=== PATIENT | female | born 1985 | race American Indian/Alaskan Native ===

== ENCOUNTER 2016-09-21 08:41 | Emergency (ER) | payer MEDICAID ==
[2016-09-21 08:59] VITALS: BP 119/77
[2016-09-21 09:27] LABS: Hemoglobin 10.8 gm/dl (10.1-14.3); Mean Corpuscular HGB Conc 32 % (30-34); Mean Corpuscular Volume 76 fl (79-97); Platelet Count 328 K/mm3 (140-440); Red Blood Count 4.48 M/mm3 (3.65-5.03); Red Cell Distribution Width 16.6 % (13.2-15.2)
[2016-09-21 09:31] LABS: Mean Corpuscular Hemoglobin 24 pg (28-32)
[2016-09-21 10:17] LABS: Bacteria,Urine 4+ /HPF (Negative); Bilirubin,Urine NEG (Negative); Blood,Urine MOD (Negative); Ketones,Urine NEG (Negative); Leukocyte Esterase,Urine LG (Negative); Nitrite,Urine POS (Negative); Protein,Urine <15 mg/dL mg/dL (Negative); Urobilinogen,Urine < 2.0 mg/dL (<2.0)
[2016-09-21 10:21] LABS: Basophils % (Manual) 0 % (0.0-1.8); Blastocytes % (Manual) 0 %
[2016-09-21 10:22] LABS: Anisocytosis 1+; Diff Status Complete; Elliptocytes Few; Helmet Cells Rare; Microcytosis 1+; Ovalocytes 1+; Polychromasia Rare
[2016-09-21 11:12] LABS: Anion Gap 22 mmol/L; BUN/Creatinine Ratio 6.66; Blood Urea Nitrogen 4 mg/dL (7-17); Calcium 9.1 mg/dL (8.4-10.2); Carbon Dioxide 17 mmol/L (22-30); Chloride 105.1 mmol/L (98-107); Glucose 99 mg/dL (65-100); Potassium 4.1 mmol/L (3.6-5.0); Sodium 140 mmol/L (137-145)
--- NOTE | 2016-09-23 01:45 | ED Elopement Review ---
ED Pt Elopement review - Results review Lab results: Laboratory Tests 09/21/16 09/21/16 09/21/16 09:09 09:09 09:09 WBC 23.0 H RBC 4.48 Hgb 10.8 Hct 34.0 MCV 76 L MCH 24 L MCHC 32 RDW 16.6 H Plt Count 328 Add Manual Diff Complete Total Counted 100 Seg Neuts % (Manual) 81.0 H Band Neutrophils % 2.0 Lymphocytes % (Manual) 12.0 L Reactive Lymphs % (Man) 0 Monocytes % (Manual) 4.0 Eosinophils % (Manual) 1.0 Basophils % (Manual) 0 Metamyelocytes % 0 Myelocytes % 0 Promyelocytes % 0 Blast Cells % 0 Nucleated RBC % Not Reportable Seg Neutrophils # Man 18.6 H Band Neutrophils # 0.5 Lymphocytes # (Manual) 2.8 Abs React Lymphs (Man) 0.0 Monocytes # (Manual) 0.9 H Eosinophils # (Manual) 0.2 Basophils # (Manual) 0.0 Metamyelocytes # 0.0 Myelocytes # 0.0 Promyelocytes # 0.0 Blast Cells # 0.0 WBC Morphology Not Reportable Hypersegmented Neuts Not Reportable Hyposegmented Neuts Not Reportable Hypogranular Neuts Not Reportable Smudge Cells Not Reportable Toxic Granulation Not Reportable Toxic Vacuolation Not Reportable Dohle Bodies Not Reportable Pelger-Huet Anomaly Not Reportable Ruben Rods Not Reportable Platelet Estimate Appears normal Clumped Platelets Not Reportable Plt Clumps, EDTA Not Reportable Large Platelets Not Reportable Giant Platelets Not Reportable Platelet Satelliting Not Reportable Plt Morphology Comment Not Reportable RBC Morphology Not Reportable Dimorphic RBCs Not Reportable Polychromasia Rare Hypochromasia Not Reportable Poikilocytosis Not Reportable Anisocytosis 1+ Microcytosis 1+ Macrocytosis Not Reportable Spherocytes Not Reportable Pappenheimer Bodies Not Reportable Sickle Cells Not Reportable Target Cells Not Reportable Tear Drop Cells Not Reportable Ovalocytes 1+ Helmet Cells Rare [place]ower-[place] Bodies Not Reportable [place] Rings Not Reportable [place] Cells Not Reportable Bite Cells Not Reportable Crenated Cell Not Reportable Elliptocytes Few Acanthocytes (Spur) Not Reportable Rouleaux Not Reportable Hemoglobin C Crystals Not Reportable Schistocytes Not Reportable Malaria parasites Not Reportable Avtar Bodies Not Reportable Hem Pathologist Commnt No Sodium 140 Potassium 4.1 Chloride 105.1 Carbon Dioxide 17 L Anion Gap 22 BUN 4 L Creatinine 0.6 L Estimated GFR > 60 BUN/Creatinine Ratio 6.66 Glucose 99 Calcium 9.1 HCG, Qual Positive Urine Color Urine Turbidity Urine pH Ur Specific [place] Urine Protein Urine Glucose (UA) Urine Ketones Urine Blood Urine Nitrite Urine Bilirubin Urine Urobilinogen Ur Leukocyte Esterase Urine WBC (Auto) Urine RBC (Auto) U Epithel Cells (Auto) Urine Bacteria (Auto) Blood Type Antibody Screen 09/21/16 09/21/16 09:09 Unknown WBC RBC Hgb Hct MCV MCH MCHC RDW Plt Count Add Manual Diff Total Counted Seg Neuts % (Manual) Band Neutrophils % Lymphocytes % (Manual) Reactive Lymphs % (Man) Monocytes % (Manual) Eosinophils % (Manual) Basophils % (Manual) Metamyelocytes % Myelocytes % Promyelocytes % Blast Cells % Nucleated RBC % Seg Neutrophils # Man Band Neutrophils # Lymphocytes # (Manual) Abs React Lymphs (Man) Monocytes # (Manual) Eosinophils # (Manual) Basophils # (Manual) Metamyelocytes # Myelocytes # Promyelocytes # Blast Cells # WBC Morphology Hypersegmented Neuts Hyposegmented Neuts Hypogranular Neuts Smudge Cells Toxic Granulation Toxic Vacuolation Dohle Bodies Pelger-Huet Anomaly Ruben Rods Platelet Estimate Clumped Platelets Plt Clumps, EDTA Large Platelets Giant Platelets Platelet Satelliting Plt Morphology Comment RBC Morphology Dimorphic RBCs Polychromasia Hypochromasia Poikilocytosis Anisocytosis Microcytosis Macrocytosis Spherocytes Pappenheimer Bodies Sickle Cells Target Cells Tear Drop Cells Ovalocytes Helmet Cells [place]ightower-[place] Bodies [place] Rings [place] Cells Bite Cells Crenated Cell Elliptocytes Acanthocytes (Spur) Rouleaux Hemoglobin C Crystals Schistocytes Malaria parasites Avtar Bodies Hem Pathologist Commnt Sodium Potassium Chloride Carbon Dioxide Anion Gap BUN Creatinine Estimated GFR BUN/Creatinine Ratio Glucose Calcium HCG, Qual Urine Color Yellow Urine Turbidity Slightly-cloudy Urine pH 6.0 Ur Specific [place] 1.016 Urine Protein <15 mg/dl Urine Glucose (UA) Neg Urine Ketones Neg Urine Blood Mod Urine Nitrite Pos Urine Bilirubin Neg Urine Urobilinogen < 2.0 Ur Leukocyte Esterase Lg Urine WBC (Auto) 13.0 H Urine RBC (Auto) 3.0 U Epithel Cells (Auto) 3.0 Urine Bacteria (Auto) 4+ Blood Type O POSITIVE Antibody Screen Negative - Call Back decision Pt Call Back Decision: Call pt to return to ED [facility]
== END 2016-09-21 20:10 | disposition left against medical advice (07) ==
LOC: ED 08:41
DX: O20.9 Hemorrhage in early pregnancy, unspecified (principal); R10.30 Lower abdominal pain, unspecified; Z88.1 Allergy status to other antibiotic agents; Z87.891 Personal history of nicotine dependence; Z3A.14 14 weeks gestation of pregnancy; Z53.21 Procedure and treatment not carried out due to patient leaving prior to being seen by health care provider
CPT/HCPCS: 36415; 80048; 81001; 84703; 85007; 85025; 86850; 86900; 86901

== ENCOUNTER 2019-04-20 11:08 | Emergency (ER) | payer MEDICAID ==
[2019-04-20 11:22] VITALS: BP 116/85
--- NOTE | 2019-04-20 11:32 | Emergency Department Report ---
Chief Complaint: Shoulder Injury Stated Complaint: KNOT ON LT POST ARM Time Seen by Provider: 04/20/19 11:27 - HPI History of Present Illness: 33 y/o female comes in for left posterior proximal cyst like structure that has been there for 1 year. Causes some discomfort. No fever no redness non tender to touch - Exam Vital Signs: Vital Signs 04/20/19 11:21 Temperature 98.5 F Pulse Rate 66 Respiratory 16 Rate Blood Pressure 116/85 [Right] O2 Sat by Pulse 100 Oximetry Physical Exam: No fever no redness non tender to touch. Cyst MSE screening note: Focused history and physical exam performed. Due to findings the following was ordered: referral to surgery ED Disposition for MSE Disposition: MED SCREENING EXAM-LEFT Is pt being admited?: No Does the pt Need Aspirin: No Condition: Stable Referrals: KATIUSKA APONTE MD [Staff Physician] - 3-5 Days MARKY HOOPER DO [Staff Physician] - 3-5 Days PA GARCÍA MD [Staff Physician] - 3-5 Days
== END 2019-04-20 12:00 | disposition left against medical advice (07) ==
LOC: ED 11:08
DX: M79.602 Pain in left arm (principal); Z53.21 Procedure and treatment not carried out due to patient leaving prior to being seen by health care provider

== ENCOUNTER 2019-05-03 11:23 | Day surgery (SDC) | payer MEDICAID ==
--- NOTE | 2019-05-03 07:39 | Short Stay Summary ---
Short Stay Documentation Date of service: 05/03/19 - History H&P: obtained from office - Allergies and Medications Current Medications: Allergies amoxicillin Allergy (Verified 04/29/19 10:29) Facial Swelling Home Medications Medication Instructions Recorded Confirmed Last Taken Type No Known Home Medications [No 04/29/19 04/29/19 Unknown History Reported Home Medications] - Physical exam General appearance: no acute distress Integumentary: no rash HEENT: Atraumatic Lungs: Normal air movement Neurological: Normal speech - Brief post op/procedure progress note Date of procedure: 05/03/19 (dictation:[id number]) Pre-op diagnosis: left shoulder skin mass Post-op diagnosis: same Procedure: excision of left shoulder skin mass IVF 1L EBL min Anesthesia: GETA Findings: [id number] lipomatous mass Surgeon: KATIUSKA APONTE Estimated blood loss: minimal Pathology: list (lipomatous mass) Specimen disposition: to lab Condition: stable - Hospital course Hospital course: uneventful - Disposition Condition at discharge: Stable Disposition: DC- TO HOME OR SELFCARE Short Stay Discharge Plan Diet: regular Wound: per your surgeon's advice Special Instructions: no heavy lifting Additional Instructions: Post Operative Instructions May shower tomorrow. Pat dry the wound or wounds. May remove wrap tomorrow. Re- wrap after shower if it helps with discomfort. After surgery, start with a light diet. Consider having a liquid diet first. If you do well, you can advance to a regular diet as you feel comfortable. Apply an ice pack to the wound or wounds for 10-20 minutes at a time. Do this at least 4-5 times a day. You can do it more if he would like. Alternate the use of ibuprofen and Tylenol for the first 2 days. I want you to take these on a scheduled basis. Take 600 mg of ibuprofen every 6 hours. Take 500 mg of Tylenol every 6 hours. You should alternate these 2 medicines. In other words, beginning with the ibuprofen. After 3 hours, take the Tylenol. Keep alternating the 2 drugs every 3 hours. Do this on a scheduled basis for the first 2 days. After that, you can take them as needed. It is very important that you use the prescription pain medicine only for very severe pain. Do not take the prescription medicine before you try using the ibuprofen and Tylenol. We will call you in a couple of days to see how youre doing. If you have any questions or concerns, always feel free to call the clinic at any time. Follow up with: PRIMARY CAREMD [Primary Care Provider] - 7 Days KATIUSKA APONTE MD [Staff Physician] - 7 Days Forms: [facility] Work/School Release Form Prescriptions: HYDROcodone/APAP 5-325 [[place] 5/325] 1 each PO Q6HR PRN #10 tablet PRN Reason: Pain , Severe (7-10)
[~2019-05-03 11:23] MED LIST: ANCEF/STERILE WATER 2 GM/20 ML 2 GM/20 ML SYRINGE IV NR; GABAPENTIN PO SCH; NACL 0.9% 1000 ML 1,000 ML IV SCH; TYLENOL PO NR
--- NOTE | 2019-05-03 11:47 | Anesthesia Day of Surgery ---
Anesthesia Day of Surgery - Day of Surgery Patient Examined: Yes Patient H&P Reviewed: Yes Patient is NPO: Yes
[2019-05-03] MEDS ORDERED: DILAUDID IV PRN (11:48)
--- NOTE | 2019-05-03 11:48 | Anesthesia Consultation ---
Anesthesia Consult and Med Hx Date of service: 05/03/19 - Airway Anesthetic Teeth Evaluation: Good ROM Head & Neck: Adequate Mental/Hyoid Distance: Adequate Mallampati Class: Class III Intubation Access Assessment: Possibly Difficult - Pulmonary Exam CTA: Yes - Cardiac Exam Cardiac Exam: RRR - Pre-Operative Health Status ASA Pre-Surgery Classification: ASA1 Proposed Anesthetic Plan: General - Pulmonary Hx Smoking: Yes (minimal smoking hx; quit 2013) Hx Respiratory Symptoms: No - Cardiovascular System Hx Hypertension: No - Central Nervous System CVA: No - Gastrointestinal Hx Gastroesophageal Reflux Disease: No - Endocrine Hx Renal Disease: No Hx Liver Disease: No Hx Insulin Dependent Diabetes: No Hx Non-Insulin Dependent Diabetes: No Hx Thyroid Disease: No - Other Systems Hx Obesity: Yes (BMI 37)
[2019-05-03] MEDS ORDERED: VERSED IV NR (12:00)
[2019-05-03] MEDS ORDERED: LACTATED RINGERS 1,000 ML IV SCH (12:00)
[2019-05-03] MEDS ORDERED: VANCOMYCIN/NS 1 GM/250 ML 1 GM/250 ML BAG IV NR (12:00)
[2019-05-03] MEDS ORDERED: DILAUDID ONE (12:24)
[2019-05-03] MEDS ORDERED: DIPRIVAN 10 MG/ML IV ONE (12:24)
[2019-05-03] MEDS ORDERED: XYLOCAINE MPF 2% ONE (12:24)
[2019-05-03] MEDS ORDERED: XYLOCAINE 1% 20 mL ONE (12:30)
[2019-05-03] MEDS ORDERED: MARCAINE-EPI 0.5%-1:200,000 INFILTRATI ONE (12:30)
[2019-05-03] MEDS ORDERED: MARCAINE-EPI/PF 0.5%-1:200,000 INFILTRATI ONE (13:05)
[2019-05-03] MEDS ORDERED: XYLOCAINE 1% 20 mL INFILTRATI ONE (13:05)
[2019-05-03] MEDS ORDERED: NACL 0.9% 1000 ML 1,000 ML ONE (14:14)
[2019-05-03] MEDS ORDERED: NORCO 5/325 PO PRN (14:25)
--- NOTE | 2019-05-03 14:35 | Operative Report ---
PREOPERATIVE DIAGNOSIS: Left shoulder skin mass. POSTOPERATIVE DIAGNOSIS: Left shoulder skin mass. PROCEDURE: Excision of left shoulder skin mass. ATTENDING PHYSICIAN: Shahrzad Littlejohn MD ANESTHESIA: General. ESTIMATED BLOOD LOSS: Minimal. FLUIDS: 1 liter. FINDINGS: A 4.5 x 7 x 14 cm lipomatous mass with no invasion into surrounding tissue. SPECIMENS: Above-mentioned mass. DRAINS: None. COMPLICATIONS: None. DISPOSITION: Stable, transferred to Recovery Room. INDICATIONS: This is a 33-year-old female who presented to the office with complaints of a 1 year history at least of an enlarging left shoulder skin mass. It fluctuates in size and causes her pain. The patient wishes to have it excised. The patient appeared to be an adequate candidate. Procedure, risks, benefits were explained to the patient. Risks included but were not limited to infection, bleeding, pain, injury to surrounding structures, possible need for further procedures in the future. The patient understood and consented. OPERATIVE NOTE: The patient was brought to the operating room and placed on the table in supine position. After adequate general anesthesia was established, the patient was placed in a right lateral decubitus position. Beanbag was used for support. Axillary roll was placed. Pressure points were padded. The patient was secured to table. Sterile prep and drape was performed. Time-out was called. SCDs were in place and antibiotics had been given. Incision was made along the lines of Lakhwinder skin tension lines. Dissection was carried down with electrocautery down to the lipomatous mass. It was from the surrounding tissue with a combination of blunt dissection and electrocautery. Small vessels were coagulated. Mass was able to be fairly easily from the surrounding tissue. It was removed intact and then passed off table in sterile fashion. We injected additional local into the surrounding area. Wound was thoroughly irrigated. We had excellent hemostasis. Deep tissue was closed with 3-0 Vicryl interrupted suture. Skin was closed with 4-0 Monocryl subcuticular stitch. Skin was cleaned and dried. Dermabond was placed. Pressure dressing was placed as well to minimize seroma formation. The patient tolerated the procedure well. There were no complications. All counts were correct at the end of the case. Please note there was no family or friends in the waiting area for me to speak with. JOB# [id number] MARLO/BARBIE
[2019-05-03 15:39] VITALS: BP 123/81
--- NOTE | 2019-05-03 21:22 | Post Anesthesia Evaluation ---
- Post Anesthesia Evaluation Patient Participated: Yes Airway Patent: Yes Stable Respiratory Function: Yes Nausea/Vomiting: No Temp > 96.8F: Yes Pain Manageable: Yes Adequeate Hydration: Yes Anesthesia Complications: No Block Receding Appropriately: Not Applicable Patient on Ventilator: No
== END 2019-05-03 15:41 | disposition home or self-care (01) ==
LOC: OR 11:23
PROVIDERS: ATTEND Surgery
DX: R22.32 Localized swelling, mass and lump, left upper limb (principal); D17.22 Benign lipomatous neoplasm of skin and subcutaneous tissue of left arm; E66.9 Obesity, unspecified; Z79.899 Other long term (current) drug therapy; Z88.6 Allergy status to analgesic agent; Z87.891 Personal history of nicotine dependence; Z68.37 Body mass index [BMI] 37.0-37.9, adult; Z98.890 Other specified postprocedural states; Z86.2 Personal history of diseases of the blood and blood-forming organs and certain disorders involving the immune mechanism
CPT/HCPCS: 23071; 81025; 88304; J1170; J2250; J2704; J3370; J7030; 88307; J0690